=== PATIENT | female | born 1995 | race Caucasian/White ===

== ENCOUNTER → 2019-04-07 | Outpatient (CLI) | payer OTHER | LOC: YHH 12:02 ==

== ENCOUNTER 2022-10-02 10:59 | Emergency (ER) | payer OTHER ==
[2022-10-02 11:21] VITALS: BP 117/80; RESP 16; TEMP 97.9; BMI 23.8
[2022-10-02 13:31] VITALS: PULSE 88
== END 2022-10-02 13:31 | disposition home or self-care (01) ==
LOC: JERFT 10:59
DX: A63.0 Anogenital (venereal) warts (principal)
CPT/HCPCS: 99281-25

== ENCOUNTER 2022-10-14 18:19 | Emergency (ER) | payer OTHER ==
[2022-10-14 18:30] VITALS: BP 119/80; PULSE 122; RESP 20; TEMP 98.1; BMI 23.8
== END 2022-10-14 20:47 | disposition home or self-care (01) ==
LOC: JERFT 18:19
DX: S90.851A Superficial foreign body, right foot, initial encounter (principal); W25.XXXA Contact with sharp glass, initial encounter; Z18.81 Retained glass fragments
CPT/HCPCS: 73630-TC-RT-FY; 99283-25

== ENCOUNTER 2023-04-22 22:02 | Emergency (ER) | payer OTHER ==
[2023-04-22 22:06] VITALS: BP 108/76; PULSE 101; RESP 18; TEMP 98.6; BMI 22.8
[2023-04-23 00:20] LABS: PH,URINE 6.5 (5.0-8.0); URINE APPEARANCE CLEAR; URINE BILIRUBIN NEGATIVE (NEGATIVE); URINE COLOR YELLOW; URINE GLUCOSE (UA) NEGATIVE (NEGATIVE); URINE KETONE NEGATIVE (NEGATIVE); URINE LEUK ESTERASE NEGATIVE (NEGATIVE); URINE NITRITE NEGATIVE (NEGATIVE); URINE PROTEIN NEGATIVE (NEGATIVE); URINE UROBILINOGEN 0.2 mg/dL (0.2-1.0)
== END 2023-04-23 00:57 | disposition home or self-care (01) ==
LOC: JERFT 22:02
DX: R30.0 Dysuria (principal); A63.0 Anogenital (venereal) warts; Z21 Asymptomatic human immunodeficiency virus [HIV] infection status
CPT/HCPCS: 36415; 81003; 87086; 87491; 87591; 99283-25

== ENCOUNTER 2023-06-10 05:39 | Emergency (ER) | payer OTHER ==
[2023-06-10 05:52] VITALS: BP 117/82; PULSE 92; RESP 18; TEMP 97.8; BMI 26.5
[2023-06-10] MEDS ORDERED: ACETAMINOPHEN 500 MG TABLET (FP) PO ONE (07:51)
[2023-06-10] MEDS ORDERED: ACETAMINOPHEN 325 MG TABLET (FP) ONE ×2 (08:05→08:08)
[2023-06-10 08:14] LABS: EPI CELLS 9 /uL (0-25.1); HYALINE CASTS 0 /uL (0-3.1); PH,URINE 7.5 (5.0-8.0); URINE APPEARANCE CLEAR; URINE BACTERIA 544 /uL (0-1359); URINE BILIRUBIN NEGATIVE (NEGATIVE); URINE COLOR YELLOW; URINE GLUCOSE (UA) NEGATIVE (NEGATIVE); URINE KETONE NEGATIVE (NEGATIVE); URINE LEUK ESTERASE TRACE (NEGATIVE); URINE NITRITE NEGATIVE (NEGATIVE); URINE PROTEIN NEGATIVE (NEGATIVE); URINE RBC 37 /uL (0-23.9); URINE UROBILINOGEN 0.2 mg/dL (0.2-1.0); URINE WBC 17 /uL (0-25.8)
[2023-06-10 08:25] LABS: HCG,QUALITATIVE URINE Negative
== END 2023-06-10 08:31 | disposition home or self-care (01) ==
LOC: JER 05:39
DX: R10.2 Pelvic and perineal pain (principal); A63.0 Anogenital (venereal) warts; R20.2 Paresthesia of skin; L29.9 Pruritus, unspecified; R30.0 Dysuria; A60.9 Anogenital herpesviral infection, unspecified
CPT/HCPCS: 36415; 81003; 84703; 87077; 87086; 87491; 87591; 87661; 99283-25